=== PATIENT | female | born 1995 | race African-American/Black ===

== ENCOUNTER 2020-05-07 05:18 | Emergency (ER) | payer OTHER, SELFPAY ==
[2020-05-07 07:08] LABS: Actual Bicarbonate (HCO3a) 21.6 mEq/L (22-28); Analyzer IN Cardio ER; Base Excess (BEa) -2.7 mEq/L (-2.0 to +3.0); CO2 Tension 35.9 mmHg (35.0-45.0); Carboxyhemoglobin (COHb) 2.9 gm% (0.0-3.0); Hemoglobin (Hb) 13.4 g/dL (12.0-16.0); O2 Tension (PaO2), arterial 486.3 mmHg (80.0-100.0); Potassium - ABG Lab 3.93 mmol/L (3.70-5.30)
[2020-05-07 07:10] LABS: ALV-art Gradient 181.825 mmHg (0-20); Puncture Site RRA
--- NOTE | 2020-05-11 15:16 | EKG ---
Test Reason : Blood Pressure : / mmHG Vent. Rate : 078 BPM Atrial Rate : 078 BPM P-R Int : 122 ms QRS Dur : 076 ms QT Int : 378 ms P-R-T Axes : 061 [id number] 006 degrees QTc Int : 430 ms Sinus rhythm with marked sinus arrhythmia Otherwise normal ECG Confirmed by STEF IRVING M.D. ([id number]), image editor LUAN ALEJANDRA ([id number]) on 05/11/2020 3:16:08 PM Referred By: Confirmed By:STEF IRVING M.D.
== END 2020-05-07 07:36 | disposition home or self-care (01) ==
LOC: ERS 05:18
DX: T58.8X1A Toxic effect of carbon monoxide from other source, accidental (unintentional), initial encounter (principal); R51.9 Headache, unspecified
CPT/HCPCS: 36600; 82805; 93005

== ENCOUNTER 2020-07-16 15:23 | Emergency (ER) | payer OTHER | END 2020-07-16 18:32 | LOC: ERS 15:23 | DX: Z53.21 Procedure and treatment not carried out due to patient leaving prior to being seen by health care provider (principal) ==

== ENCOUNTER 2020-12-10 21:10 | Emergency (ER) | payer OTHER | END 2020-12-10 23:46 | disposition home or self-care (01) | LOC: ERS 21:10 | DX: K04.7 Periapical abscess without sinus (principal) | CPT/HCPCS: 41800 ==